=== PATIENT | female | born 1950 | race Caucasian/White ===

== ENCOUNTER 2016-08-30 15:53 | Emergency (ER) | payer MEDICARE, OTHER ==
[~2016-08-30] VITALS: Ht 167.6 cm; Wt 65.9 kg
[2016-08-30 15:59] VITALS: BP 162/76; PULSE 69; TEMP 98.2
[2016-08-30] MEDS ORDERED: SINEMET-25/251 UDTAB PO (16:03)
[2016-08-30] MEDS ORDERED: SINEMET CR1 UDTAB.S1 PO (16:03)
== END 2016-08-30 16:55 | disposition home or self-care (01) ==
LOC: COL.ER 15:53
DX: R04.0 Epistaxis (principal); G20 Parkinson's disease